=== PATIENT | male | born 1950 | race Caucasian/White ===

== ENCOUNTER → 2018-09-20 | Outpatient (CLI) | payer OTHER ==
[~2018-09-20] VITALS: Ht 188 cm; Wt 104.3 kg
[~2018-09-20] MED LIST: ACETAMINOPHEN-1 EAC3 PO; AMANTADINE100 M1 PO; AMITRIPTYLINE H25 M2 PO; ASPIRIN EC325 M1 PO; ASPIRIN EC81 M1 PO; ATENOLOL 50MG T50 MG PO; BREO ELLIPTA 11 EACH IH; BYSTOLIC 5 MG5 M1 PO; COZAAR 50 MG TA50 M1 PO; CRESTOR10 MG PO; CRESTOR40 MG PO; DILAUDID 2 MG TA2 MG PO; IMDUR 30 MG TAB30 MG PO; KETOROLAC 0.5% E5 ML OPHTHALMIC; LUMIGAN2.5 M1 OPHTHALMIC; NITROGLYCERIN0.4 MG SUBLING; PHISOHEX148 ML TOP; PLAVIX 75 MG TA75 M1 PO; PROTONIX40 M1 PO; SYNTHROID50 MCG PO; TORSEMIDE20 MG PO; UNICOMPLEX M TA1 TA1 PO; ZETIA10 MG PO
[2018-09-20 08:32] VITALS: BP 162/73
[2018-09-20 08:40] LABS: CALCIUM 8.6 mg/dL (8.5-10.1); POTASSIUM 4.6 mmol/L (3.5-5.1)
--- NOTE | 2018-09-20 17:06 | EKG ---
[place] [address] [facility] 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 SORIANO : 1950 Requested By: Minh James Order Number: [id number] MD: Haresh Frankel Measurements Intervals [place] Rate: 68 P: 75 SD: 170 QRS: 28 QRSD: 96 T: 109 QT: 410 QTc: 437 Interpretive Statements Sinus rhythm Ventricular premature complex Borderline repolarization abnormality Compared to ECG 01/19/2013 07:22:08 Ventricular premature complex(es) now present Anteroseptal elevation no longer present Electronically Signed On 09-20-2018 17:06:32 CDT by Haresh Frankel [email or web address] ��������������������������������������������� <ELECTRONICALLY SIGNED> ���������������������������������������� By: Haresh Frankel MD, [facility] ��������������������������������������������� 09/20/18 1706 0811 0811 Haresh Frankel MD, [facility] /EPI
--- NOTE | 2018-09-21 18:30 | CATHLAB ---
[facility] [address] [place] [address] INVASIVE PROCEDURE REPORT Name: SANKET HOBBS Room #: REG [facility]#: [id number] ������������� Admission: 09/20/18 ������������� Attend Phys: Nilo Troy, Discharge: ��� ������������� ��� Date of : 50 Date of Service: 09/21/18 1829 �� Report #: [id number] �������� ��������������������������������������������[id number] THIS REPORT FOR: //name// APPROVED REPORT Study performed: 09/20/2018 07:50:33 Patient Details Patient Status: Out-Patient Room #: The patient is a 67 year-old male Event Personnel Minh James Enhanced Environmental Operator, Nathen Ashford RN, Yari Balderas RT(R)() Rodger Vásquez David Monitor Procedures Performed Right and Left Heart Cath w/or w/o Coronarie [id number] [facility] Indication Chest pain Procedure Narrative The Right Groin^ was infiltrated with 1% Lidocaine subcutaneous anesthesia. A 6 FR sheath was inserted into the . Coronary angiography was performed using coronary diagnostic catheters. The right coronary system was accessed and visualized with a JR4 catheter. The left coronary system was accessed and visualized with a JL4 catheter. The left ventricle was accessed and visualized with a PIGTAIL catheter. Left ventriculogram was performed in 30 degree projection. Closure device was deployed with a 6 Fr 6F Fish closure. The patient tolerated the procedure well and there were no complications associated with the procedure. There was no hematoma. Intraoperative Conscious Sedation Sedation start time: Case end Time: 59 Fentanyl 50 mcg Versed 1 mg Fluoro Time: 4,46 minutes Dose: DAP 4936 cGycm2 630 mGy Contrast Type and Amount: Omnipaque 95 ml Hemodynamics [facility] [address] INVASIVE PROCEDURE REPORT Name: SANKET HOBBS Room #: REG [facility]#: [id number] ������������� Admission: 09/20/18 ������������� Attend Phys: Nilo Troy, Discharge: ��� ������������� ��� Date of : 50 Date of Service: 09/21/18 1829 �� Report #: [id number] �������� ��������������������������������������������[id number] The right atrial mean pressure is 14 mmHg. The pulmonary artery pressure is 47/23 mmHg with a mean of 32 mmHg. The mean pulmonary capillary wedge pressure is 18 mmHg. The aortic pressure is 188/79 mmHg with a mean of 120 mmHg. The left ventricular pressure is 185/16 mmHg with a mean of mmHg. The left ventricular end diastolic pressure is 28 mmHg. PCI Technique Lesion 3 Percutaneous Coronary Intervention was performed on the Unspecified. Conclusion #1 successful right heart catheterization with cardiac output and hemodynamics by thermodilution. 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 #6 a graft to the distal right PDA is intact with mild irregularities this may of been a radial graft mild disease in the PDA but extends along the inferior wall no occlusive disease #6 SVG to a small diagonal system is patent the graft is well preserved it then is attached to the mid circumflex OM which is filling mildly diseased relatively small in caliber Recommendations and plan: Continue aggressive risk factor modification. Mild pulmonary pressures and elevated wedge pressure. Will add diuretic. No indication for coronary intervention. [place] system is essentially occluded. ��������������������������������������������� <ELECTRONICALLY SIGNED> ���������������������������������������� By: Minh James MD, FACC ��������������������������������������������� 09/21/181828 28 28 Minh James MD, FACC /INF
== END | disposition home or self-care (01) ==
LOC: SPEC 07:34 → CATH 07:34
PROVIDERS: Nuclear Medicine Nuclear Cardiology
DX: I25.10 Atherosclerotic heart disease of native coronary artery without angina pectoris (principal); I70.248 Atherosclerosis of native arteries of left leg with ulceration of other part of lower leg; I70.1 Atherosclerosis of renal artery; I70.92 Chronic total occlusion of artery of the extremities; Z87.891 Personal history of nicotine dependence; Z82.49 Family history of ischemic heart disease and other diseases of the circulatory system; Z88.2 Allergy status to sulfonamides; Z79.899 Other long term (current) drug therapy; Z88.6 Allergy status to analgesic agent; Z98.890 Other specified postprocedural states; Z79.82 Long term (current) use of aspirin; Z95.1 Presence of aortocoronary bypass graft

== ENCOUNTER → 2018-10-07 | Outpatient (CLI) | payer OTHER | LOC: RAD 13:35 | DX: J44.9 Chronic obstructive pulmonary disease, unspecified (principal); Z77.090 Contact with and (suspected) exposure to asbestos; Z88.8 Allergy status to other drugs, medicaments and biological substances; Z88.5 Allergy status to narcotic agent; Z88.2 Allergy status to sulfonamides; Z98.890 Other specified postprocedural states ==

== ENCOUNTER → 2019-07-14 | Outpatient (CLI) | payer OTHER | LOC: SJCVCIMAG 07-08 13:51 | DX: I70.201 Unspecified atherosclerosis of native arteries of extremities, right leg (principal); R94.31 Abnormal electrocardiogram [ECG] [EKG]; I25.810 Atherosclerosis of coronary artery bypass graft(s) without angina pectoris; E78.00 Pure hypercholesterolemia, unspecified; I10 Essential (primary) hypertension; I65.23 Occlusion and stenosis of bilateral carotid arteries; J44.9 Chronic obstructive pulmonary disease, unspecified; Z95.1 Presence of aortocoronary bypass graft; Z79.82 Long term (current) use of aspirin; Z79.899 Other long term (current) drug therapy; Z82.49 Family history of ischemic heart disease and other diseases of the circulatory system; Z87.891 Personal history of nicotine dependence; Z89.512 Acquired absence of left leg below knee ==

== ENCOUNTER → 2020-01-24 | Outpatient (CLI) | payer OTHER | LOC: SJCVCIMAG 07:35 | PROVIDERS: ATTEND Nuclear Medicine Nuclear Cardiology | DX: I08.2 Rheumatic disorders of both aortic and tricuspid valves (principal); I70.202 Unspecified atherosclerosis of native arteries of extremities, left leg; I65.23 Occlusion and stenosis of bilateral carotid arteries; Z95.1 Presence of aortocoronary bypass graft; J44.9 Chronic obstructive pulmonary disease, unspecified; I10 Essential (primary) hypertension; E78.5 Hyperlipidemia, unspecified; I25.10 Atherosclerotic heart disease of native coronary artery without angina pectoris; E78.00 Pure hypercholesterolemia, unspecified; Z79.899 Other long term (current) drug therapy; Z87.891 Personal history of nicotine dependence ==

== ENCOUNTER → 2020-08-07 | Outpatient (CLI) | payer OTHER | LOC: SJCVCIMAG 09:55 | PROVIDERS: ATTEND Internal Medicine Cardiovascular Disease | DX: I70.202 Unspecified atherosclerosis of native arteries of extremities, left leg (principal); R94.31 Abnormal electrocardiogram [ECG] [EKG]; I77.9 Disorder of arteries and arterioles, unspecified; I25.10 Atherosclerotic heart disease of native coronary artery without angina pectoris; I10 Essential (primary) hypertension; E78.00 Pure hypercholesterolemia, unspecified; J44.9 Chronic obstructive pulmonary disease, unspecified; Z95.1 Presence of aortocoronary bypass graft; Z95.828 Presence of other vascular implants and grafts; Z98.890 Other specified postprocedural states; Z88.8 Allergy status to other drugs, medicaments and biological substances; Z79.82 Long term (current) use of aspirin; Z79.899 Other long term (current) drug therapy; Z87.891 Personal history of nicotine dependence; Z82.49 Family history of ischemic heart disease and other diseases of the circulatory system ==

== ENCOUNTER → 2021-02-19 | Outpatient (CLI) | payer OTHER | LOC: SJCVCIMAG 08:05 | PROVIDERS: ATTEND Internal Medicine Cardiovascular Disease | DX: I70.202 Unspecified atherosclerosis of native arteries of extremities, left leg (principal); R94.31 Abnormal electrocardiogram [ECG] [EKG]; T82.856A Stenosis of peripheral vascular stent, initial encounter; I65.23 Occlusion and stenosis of bilateral carotid arteries; I25.10 Atherosclerotic heart disease of native coronary artery without angina pectoris; E78.00 Pure hypercholesterolemia, unspecified; I77.9 Disorder of arteries and arterioles, unspecified; I10 Essential (primary) hypertension; J44.9 Chronic obstructive pulmonary disease, unspecified; Z95.1 Presence of aortocoronary bypass graft; Z98.890 Other specified postprocedural states; Z79.82 Long term (current) use of aspirin; Z79.899 Other long term (current) drug therapy; Z88.8 Allergy status to other drugs, medicaments and biological substances; Z87.891 Personal history of nicotine dependence; Z82.49 Family history of ischemic heart disease and other diseases of the circulatory system; Y83.8 Other surgical procedures as the cause of abnormal reaction of the patient, or of later complication, without mention of misadventure at the time of the procedure; Y92.89 Other specified places as the place of occurrence of the external cause ==